=== PATIENT | female | born 1935 | race African-American/Black ===

== ENCOUNTER 2018-02-22 06:37 | Day surgery (SDC) | payer OTHER ==
[~2018-02-22] VITALS: Ht 165.1 cm; Wt 79.4 kg
[~2018-02-22 06:37] MED LIST: IRON325 M1 PO; NABI650T PO; PROCARDIA XL30 MG PO; PROTONIX40 MG PO; ROCALTROL0.25 MCG PO; VITAMIN D31000 UNIT PO; ZYLOPRIM300 MG PO
[2018-02-22 07:24] LABS: HEMATOCRIT 36.8 % (36.0-46.0); HEMOGLOBIN 11.7 G/DL (11.9-15.5); MCH 28.5 PG (29.0-34.0); MCHC 31.8 G/DL (30.0-36.0); MCV 89.5 FL (83-99); PLATELET COUNT 195 K/uL (156-360); RBC DIS.WIDTH-CV 14.2 % (11.8-14.6); RBC DIS.WIDTH-SD 46.5 % (39-53); RED BLOOD COUNT 4.11 M/uL (3.80-5.20); WHITE BLOOD COUNT 6.3 K/uL (4.1-10.2)
[2018-02-22 07:30] VITALS: BP 163/72
[2018-02-22 07:44] LABS: CHLORIDE 106 MEQ/L (99-109); CREATININE 5.8 MG/DL (0.6-1.3); GFR ESTIMATE (CALCULATED) 9 mL/min/; GLUCOSE 109 mg/dL (70-99); POTASSIUM 4.4 MEQ/L (3.7-5.4); SODIUM 139 MEQ/L (136-147); UREA NITROGEN (BUN) 68 mg/dL (9-23)
[2018-02-22 12:19] VITALS: BP 174/56
[2018-02-22 13:15] VITALS: BP 174/74
== END 2018-02-22 13:39 | disposition home or self-care (01) ==
LOC: SDC 06:37
PROVIDERS: Surgery
DX: I12.0 Hypertensive chronic kidney disease with stage 5 chronic kidney disease or end stage renal disease (principal); N18.6 End stage renal disease; Z87.891 Personal history of nicotine dependence; E78.00 Pure hypercholesterolemia, unspecified; K21.9 Gastro-esophageal reflux disease without esophagitis
CPT/HCPCS: 80048; 85027; C1768; J0330; J0690; J1170; J1644; J2405; J2720